=== PATIENT | male | born 1990 | race Caucasian/White ===

== ENCOUNTER 2016-08-07 11:24 | Emergency (ER) | payer SELFPAY ==
[~2016-08-07] VITALS: Ht 180.3 cm; Wt 80.0 kg
[2016-08-07] MEDS ORDERED: SODIUM CHLORIDE 0.9% 1,000 ML IV ONE (12:24)
[2016-08-07 13:20] LABS: BASOPHILS % 0.8 % (0.0-2.0); EOSINOPHILS % 1.7 % (0.0-5.0); HEMATOCRIT. 40.4 % (42.0-52.0); HEMOGLOBIN. 13.5 g/dL (14.0-18.0); LYMPHOCYTES % 18.5 % (20.0-50.0); MEAN CORPUSCULAR HEMOGLOBIN 30.7 pg (28.0-32.0); MEAN CORPUSCULAR HGB CONC 33.5 g/dL (31.0-37.0); MEAN CORPUSCULAR VOLUME 91.5 fL (80.0-94.0); MEAN PLATELET VOLUME 8.1 fl (7.4-10.4); MONOCYTES % 8.8 % (2.0-8.0); NEUTROPHILS % 70.2 % (40.0-76.0); PLATELET 316 x1000/uL (130-400); RED BLOOD CELL COUNT 4.41 mill/uL (4.7-6.1); RED CELL DISTRIBUTION WIDTH 14.1 % (11.6-14.6); WHITE BLOOD COUNT 8.3 x1000/uL (4.5-11.0)
[2016-08-07 13:26] LABS: CHLORIDE 106 mEq/L (98-107); INDEX HEMOLYSI 1 (1-3); INDEX ICTERIC 1 (1-4); INDEX LIPEMIC 1 (1-3)
[2016-08-07 13:32] LABS: ACETAMINOPHEN < 2 ug/mL (10-30); ALANINE AMINOTRANSFERASE 33 IU/L (13-61); ALBUMIN 3.7 g/dL (3.4-5.0); ANION GAP 14; CALCIUM 8.5 mg/dL (8.5-10.1); CARBON DIOXIDE 28 mEq/L (21-32); ETHANOL BLOOD < 10 mg/dL; UREA NITROGEN BLOOD 15 mg/dL (7-21); eGFR > 60 mL/min (>60)
[2016-08-07] MEDS ORDERED: ZIPRASIDONE MESYLATE 20MG/VIAL IM STA (15:02)
[2016-08-07 18:06] LABS: *AMPHETAMINES SCREEN URINE PRESUMTIVE POSITIVE (NEGATIVE); *BARBITURATES SCREEN URINE NEGATIVE (NEGATIVE); *BENZODIAZEPINES SCREEN URINE NEGATIVE (NEGATIVE); *COCAINE SCREEN URINE NEGATIVE (NEGATIVE); CANNABINOID URINE SCREEN NEGATIVE (NEGATIVE); ECSTASY MDMA SCREEN URINE CONF.TEST INDICATED (NEGATIVE); METHADONE URINE SCREEN NEGATIVE (NEGATIVE); OPIATES URINE SCREEN NEGATIVE (NEGATIVE); PHENCYCLIDINE URINE SCREEN NEGATIVE (NEGATIVE)
[2016-08-08 02:33] VITALS: BP 141/78
== END 2016-08-08 02:36 | disposition home or self-care (01) ==
LOC: EDBD 11:30 → ER 11:30
DX: T43.621A Poisoning by amphetamines, accidental (unintentional), initial encounter (principal); F23 Brief psychotic disorder; F19.159 Other psychoactive substance abuse with psychoactive substance-induced psychotic disorder, unspecified; Y92.89 Other specified places as the place of occurrence of the external cause; Z78.1 Physical restraint status; R46.0 Very low level of personal hygiene
CPT/HCPCS: 36415; 51702; 80053; 80305; 80307; 80329; 85025; 96360; 96361; 96372; 99285; A4217; G0482; J3486; J7030; Z7610